=== PATIENT | male | born 2000 | race Caucasian/White ===

== ENCOUNTER 2025-04-24 11:35 | Outpatient (AMB) | payer OTHER, SELFPAY ==
--- NOTE | 2025-04-24 11:37 | A.OFFPC_ITS ---
Vital Signs 04/24/25 11:45 Height 6 ft 4.5 in Weight 181 lb 4 oz BMI 21.8 BP 121/75 Blood Pressure Location Rt brachial Position Sitting Respiration 18 Pulse 69 Pulse Source Pulse Oximeter Temp 97.4 F Temp Source Oral Pulse Oximetry (%) 97 Oxygen Delivery Method Room Air Intake Visit Reasons: ankle pain/establish patient Intake Note: Patient present to establish care. 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: No Accompanied by: Self / Same As Patient Allergies No Known Allergies Allergy (Verified 04/24/25 11:41) Medication List - Last Reconciled 04/24/25 by Errol Barth MD miconazole nitrate 2% (Antifungal (miconazole)) 1 appl topical BID Tobacco use date assessed: 04/24/25 Dental Screening Dental Screen Date: 04/24/25 Did you have a dental visit in the last 12 months?: No Did you have a dental problem in the last 6 months where you did not have access to dental care?: No Was dental information given to patient?: No HPI HPI Comments History of Present Illness Details History of Present Illness The patient is a 24 year old male presenting with an acute right ankle injury, recurrent angular cheilitis, persistent genital redness (balanitis), and hair loss. Right Ankle Sprain: The patient sustained an injury to his right ankle while playing volleyball three days ago when he landed on another player's foot, causing his ankle to roll. He reports sharp, stabbing pain localized to the medial aspect of the ankle. Initially, the pain was a 7-8 out of 10, and he was unable to bear any weight; it has since improved to a 6 out of 10, and he can now hop and walk with a limp. He notes puffiness on the side but no pain in that area. He has been managing it with rest, ice, compression, and elevation (WAN). He has a history of a severe left ankle sprain in September, for which he received physical therapy and still feels is at 85% recovery, though it is not painful. An x-ray of the left ankle at that time was negative for any acute fracture. Angular Cheilitis and Balanitis: The patient reports recurrent issues with cuts in the corners of his mouth (angular cheilitis) and persistent redness around his foreskin (balanitis) for at least a year. He was previously prescribed a treatment, believed to be clotrimazole, for a suspected yeast infection in both areas. He used the cream for about three weeks with no significant improvement for the angular cheilitis, which seemed to heal naturally on its own. The balanitis has become more persistent over the past year, described as a constant, agitated redness, whereas previously it would resolve. He has a girlfriend who also experiences recurrent yeast infections, and he is concerned they may be passing it back and forth. Hair Loss: The patient reports recent, rapid hair loss and is unsure if the cause is stress, genetics, or a medical condition. Constipation: The patient reports experiencing moments of constipation. He also had a recent episode of rectal discomfort and pain upon sitting, which he believes was related to internal hemorrhoids from straining during a period of constipation. The rectal symptoms have since improved over the last two weeks. Supraventricular Tachycardia (SVT): The patient has a history of SVT and underwent an ablation procedure via the groin approximately three years ago. He has not had any episodes since the surgery. Surgical History: - Supraventricular tachycardia (SVT) abl ation approximately three years ago. Medications: - Clotrimazole cream: Prescribed previou [facility] for angular cheilitis and balanitis. Social History: - Education: Recently completed a Master 's degree in [employer]. - Substance Use: Smokes marijuana since the COVID-19 pandemic began (4-5 years); denies other drug use. - Sexual History: He is sexually active with one partner (girlfriend). 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 Family History: - The patient mentions a family history of male pattern baldness may be relevant to his hair loss. - A family history of diabetes is noted as a risk factor. Diagnostic Results: - Labs (from ~1 month prior): reported n ormal iron levels; no STDs. - Imaging (from September): x-ray of the left ankle was negative for acute fracture. Past Medical History - Supraventricular tachycardia (SVT): [facility] successful cardiac ablation three years ago with no recurrence of episodes. - Prior Hospitalizations: He denies any long-term hospitalizations. - Left ankle sprain: sustained in September, t reated with physical therapy. Health Maintenance - Discussed managing constipation by inc reasing water and fiber intake, and using srpl-arj-mzdkcna stool softeners like Miralax or docusate as needed to prevent long-term complications like severe hemorrhoids or diverticulosis. - Lab work ordered to establish a merged with [facility] baseline and investigate potential underlying causes for recurrent infections and hair loss. - STD testing was negative about a month ago. [facility] Medical History (Updated 04/24/25 @ 12:31 by Errol Barth MD) SVT (supraventricular tachycardia) Constipation Hair loss Angular cheilitis Right ankle sprain Balanitis Supraventricular arrhythmia Family History (Updated 04/24/25 @ 11:44 by Damion Hernandez CMA) Maternal Grandfather Substance use disorder Mother Mental health disorder Social History (Updated 04/24/25 @ 11:44 by Damion Hernandez CMA) Housing: House Alcohol intake: current Comment: Rarely Patient Tobacco Use Status: Never used Tobacco e-Cigarette/Vaping Use: Never Used Second Hand Smoke Exposure: No Substance Use Type: Marijuana service: No Current occupational status: employed 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 1. Little interest or pleasure in doing things: not at all 2. Feeling down, depressed, or hopeless: several days 3. Trouble falling or staying asleep, or sleeping too much: several days 4. Feeling tired or having little energy: several days 5. Poor appetite or overeating: several days 6. Feeling bad about yourself - or that you are a failure or have let yourself or your family down: several days 7. Trouble concentrating on things, such as reading the newspaper or watching television: not at all 8. Moving or speaking so slowly that other people could have noticed. Or the opposite - being so fidgety or restless that you have been moving around a lot more than usual: not at all 9. Thoughts that you would be better off or of hurting yourself in some way: several days Total score: 6 Depression Screening Interpretation: Negative Depression Screening Done: Yes 36400 - PHQ-9 Billing: Yes Source: Developed by Drs. Tejinder Bolanos, An B.Avni Alvarez and colleagues, with an educational km from [employer]. Thrive Questionnaire Date Thrive assessed: 04/24/25 I am a: Patient What is your living situation today?: I have a steady place to live Within the past 12 months, did the food you bought not last and you didn't have the money to get more?: Never true Within the past 12 months, did you worry whether your food would run out before you got money to buy more?: Never true Do you have trouble paying for medicines?: No Do you have trouble getting transportation to medical appointments?: No Do you have trouble paying your heating and electricity bill?: No Do you have trouble taking care of your child, family member or friend?: No Are you currently unemployed and looking for a job?: No Are you interested in more education?: No Please select the resources that you would like help with: None Currently or been in a relationship where the following occur: No concerns reported THRIVE Score: 0 AUDIT C Alcohol Use Questionnaire (AUDIT-C) 1. How often do you have a drink containing alcohol?: Monthly or less 2. How many drinks containing alcohol do you have on a typical day when you are drinking?: 3 or 4 3. How often do you have six or more drinks on one occasion?: Less than monthly Total Score: 3 RAPHAEL-7 AMB Questionnaire RAPHAEL-7 Date RAPHAEL - 7 assessed: 04/24/25 Feeling nervous, anxious, or on edge: 0 = Not at all Not being able to stop or control worryin = Several days Worrying too much about different things: 1 = Several days Trouble relaxin = Not at all Being so restless that it is hard to sit still: 0 = Not at all Becoming easily annoyed or irritable: 1 = Several days Feeling afraid as if something awful might happen: 0 = Not at all Total RAPHAEL-7 score (0-4 normal; 5-9 mild; 10-14 moderate; 15-21 severe): 3 Source: Developed by Drs. Tejinder Bolanos, Avni Martinez and colleagues, with an educational km from [employer]. RAPHAEL-7 Assessment Billing RAPHAEL-7 Assessment Tool: RAPHAEL-7 Assessment 79824 Review of Systems Narrative Review of Systems - Musculoskeletal: Reports sharp, stabbing pain (6/10) and puffiness in the right ankle with limited weight-bearing ability. Denies significant pain in the previously sprained left ankle. - Skin/Integumentary: Reports cuts in the corners of his mouth and a recent abrasion on his right knee. Reports rapidly thinning hair. Reports persistent redness around the foreskin. - Genitourinary: Reports persistent redness around the foreskin, which feels sensitive. Denies being circumcised. - Cardiovascular: Reports history of SVT, status post-ablation, with no episodes since. - Gastrointestinal: Reports intermittent constipation and a history of what he believes were hemorrhoids causing discomfort when sitting, which has since resolved. Denies current rectal pain. - Neurological: Reports good sleep. 10-point ROS reviewed and negative except as noted in HPI Physical exam (Primary Care) Vital Signs: Last Vital Signs Temp 97.4 F 04/24/25 11:45 Pulse 69 04/24/25 11:45 Resp 18 04/24/25 11:45 BP 121/75 04/24/25 11:45 Pulse Ox 97 04/24/25 11:45 Oxygen Delivery Method Room Air 04/24/25 11:45 BMI result Body Mass Index 21.8 Tobacco/Smoking Status: Tobacco use Status Tobacco use date assessed 04/24/25 04/24/25 11:47 Patient Tobacco Use Status Never used Tobacco 04/24/25 11:47 e-Cigarette/Vaping Use Never Used 04/24/25 11:47 PHQ-9: PHQ-9 Score PHQ-9: Total score 6 04/24/25 11:49 Depression Screening Interpretation: Negative Thrive Assessment: Date of Thrive Assessment Date Thrive assessed 04/24/25 04/24/25 11:40 Currently or been in a relationship where the following occur: No concerns reported Narrative Physical Exam General: Well-appearing, in no acute distress. Vital signs: Within normal limits. HEENT: Normocephalic, atraumatic. PERRLA, EOMI. Conjunctiva clear, sclera anicteric. Oropharynx clear, mucous membranes moist. TMs intact bilaterally. Notable for angular cheilitis at the corners of the mouth. Neck: Supple, no lymphadenopathy, no thyromegaly, no JVD or carotid bruits. Cardiovascular: RRR, normal S1/S2, no murmurs, rubs, or gallops. Peripheral pulses 2+ and symmetric. No edema. Respiratory: Lungs clear to auscultation bilaterally, no wheezes, rales, or rhonchi. Normal effort. Abdomen: Soft, non-tender, non-distended. Normoactive bowel sounds. No hepatosplenomegaly, no masses. MSK: Full range of motion, no joint swelling or deformity. Normal gait. Right ankle with tenderness and swelling, patient reports sharp pain, rated 6/10, improved from initial 7-8/10. Skin: Warm, dry, intact. No rashes, lesions, or pallor. Notable for persistent redness around the foreskin. cracked mild crusting corner of mouth Neuro: Alert and oriented x3. Cranial nerves II-XII intact. Strength 5/5 throughout. Sensation intact. Reflexes 2+ symmetric. Normal coordination and gait. Psych: Appropriate mood and affect. Normal judgment and insight. Coding Level of Care Code New Pt Level 4 (44848) Add On Problem Visit Only Diagnoses Right ankle sprain S93.401A Angular cheilitis K13.0 Balanitis N48.1 Hair loss L65.9 Constipation K59.00 SVT (supraventricular tachycardia) I47.10 Additional Codes RAPHAEL-7 Assessment Billing - RAPHAEL-7 Assessment Tool: RAPHAEL-7 Assessment 64460 ([id number]) PHQ-9 - 78653 - PHQ-9 Billing: Yes ([id number]) Assessment & Plan Assessment & Plan (1) Right ankle sprain: Code(s): S93.401A - Sprain of unspecified ligament of right ankle, initial encounter Category: Medical (2) Angular cheilitis: Code(s): K13.0 - Diseases of lips Category: Medical (3) Balanitis: Code(s): N48.1 - Balanitis Category: Medical (4) Hair loss: Code(s): L65.9 - Nonscarring hair loss, unspecified Category: Medical (5) Constipation: Code(s): K59.00 - Constipation, unspecified Category: Medical (6) SVT (supraventricular tachycardia): Code(s): I47.10 - Supraventricular tachycardia, unspecified Category: Medical Plan Consent Patient was informed and verbally consented to the use of an ambient scribe for clinic note documentation during this visit. Plan 1. Right Ankle Sprain - Based on the [place] Ankle Rules and physical exam, an X-ray is not indicated at this time as a fracture is unlikely. - Continue conservative management with RICE (Rest, Ice, Compression, Elevation). - The patient is advised to wear his ankle brace for support. - Monitor for improvement. 2. Angular Cheilitis, Balanitis, And Hair Loss - The differential diagnosis for these recurrent issues includes fungal infection, bacterial infection, vitamin deficiencies (B2, B12, folate, zinc), and elevated blood sugar. - A comprehensive blood panel will be ordered to investigate the underlying cause, including CBC, TSH, lipid panel, hemoglobin A1c, and levels of vitamins B2 (riboflavin), B12, folate (B9), zinc, and iron. - The patient is advised to stop using clotrimazole. - A new medication with both antifungal and antibacterial properties will be prescribed for the balanitis. - The possibility of cross-infection with his partner was discussed. - Patient to follow up in two weeks to review lab results and adjust the treatment plan accordingly. 3. Constipation And Hemorrhoids - The patient is advised to increase his water and fiber intake, including more green vegetables. - He is advised to use nzor-uil-ducakab stool softeners like MiraLAX or docusate when constipated to prevent straining and long-term complications like diverticulosis. Discussion Notes I discussed with the patient that his right ankle injury appears to be a sprain that is healing well and does not require an x-ray at this time, based on the [place] [facility]le Rules. I recommended he continue with RICE therapy and use his ankle brace for support. I explained that the recurrent nature of his angular cheilitis, balanitis, and his recent hair loss warrants a thorough investigation to find the root cause, rather than just treating the symptoms. We reviewed the potential causes including fungal or bacterial infections, vitamin deficiencies (B2, B12, folate, zinc), or elevated blood sugar, noting his family history of diabetes as a risk factor. I ordered a comprehensive panel of blood tests to assess for these possibilities. I will prescribe a different topical medication with both antifungal and antibacterial properties for his balanitis and advised him to stop the clotrimazole. We also discussed that he and his girlfriend might be passing a yeast infection back and forth. Regarding his constipation, I provided guidance on increasing water and fiber intake and using over-the- counter stool softeners as needed to prevent recurrence and long-term complications. The patient can have his labs drawn here without fasting. We will follow up in two weeks to review the results, but I will contact him sooner if anything critical is found. Patient Instructions - For your ankle sprain, continue to use the RICE method: Rest, Ice, Compression, and Elevation. Wear your ankle brace for added support. - Stop using the clotrimazole cream. - Use the new cream that will be prescribed for the redness on your penis as directed. - Please go to the lab to have the blood tests done. You do not need to fast (go without eating) for these tests. - For constipation, increase the amount of water you drink and eat more foods with fiber, such as leafy green vegetables. - If you become constipated again, you can use an xxkx-zye-hhbkiwr stool softener like MiraLAX or docusate. - Schedule a follow-up appointment in two weeks to discuss your lab results. - I will contact you sooner if your lab results show anything that needs immediate attention. Medical Decision Making The patient is a 24-year-old male presenting with multiple concerns, primarily an acute right ankle injury, recurrent angular cheilitis, persistent balanitis, and hair loss. His right ankle injury is consistent with a ligamentous sprain; his ability to bear some weight and localized tenderness on the medial aspect, without exquisite tenderness over bony landmarks, makes a fracture unlikely per [place] [facility]le Rules, thus deferring the need for imaging. The management will be conservative with RICE and bracing. The constellation of recurrent angular cheilitis and balanitis, along with new hair loss, is concerning for a potential underlying systemic issue rather than separate dermatological problems. The diff erential is broad and includes nutritional deficiencies (B vitamins, zinc, iron), hyperglycemia (given his family history risk for diabetes), or persistent fungal/bacterial infections potentially exchanged with his partner. A comprehensive lab workup is the most logical next step to narrow down these possibilities and arrive at a root cause rather than continuing empirical treatment which has already failed. While awaiting results, I will prescribe a combination antifungal/antibacterial topical for his balanitis, as it offers broader coverage than clotrimazole alone and is more appropriate given the persistent nature of his symptoms. His constipation and hemorrhoid history are addressed with lifestyle and dietary counseling to prevent long-term GI issues. A two-week follow-up is scheduled to correlate lab findings with the clinical picture and establish a definitive treatment plan. Total Time Statement 30 min Total time spent caring for the patient today includes pre-visit chart review, documentation, review of laboratory and diagnostic imaging results, medication reconciliation, medically necessary evaluation, counseling on diagnoses, care coordination, ordering appropriate tests and medications, review of tests performed by other providers, reporting test results to the patient, and communication with other healthcare providers. Orders: Orders Vitamin B12 and Folate Today Z13.9 - Encounter for screening, unspecified Zinc Today Z13.9 - Encounter for screening, unspecified Hepatitis B Surface Antigen Today Z13.9 - Encounter for screening, unspecified Syphilis Screen Today Z13.9 - Encounter for screening, unspecified Comprehensive Met. Panel Today Z13.9 - Encounter for screening, unspecified Hepatitis C Antibody Today Z13.9 - Encounter for screening, unspecified TSH reflex Free T4 Today Z13.9 - Encounter for screening, unspecified CT NG by PCR Urine Today Z13.9 - Encounter for screening, unspecified UA CC w/rflx Micro + Cult Today Z13.9 - Encounter for screening, unspecified Lipid Panel Today Z13.9 - Encounter for screening, unspecified Hemoglobin A1c Today Z13.9 - Encounter for screening, unspecified Hepatitis B Surface Antibody Today Z13.9 - Encounter for screening, unspecified Ferritin Today D50.9 - Iron deficiency anemia, unspecified, Z13.9 - Encounter for screening, unspecified IRON PROFILE Today D50.9 - Iron deficiency anemia, unspecified, Z13.9 - Encounter for screening, unspecified Transferrin Today D50.9 - Iron deficiency anemia, unspecified, Z13.9 - Encount er for screening, unspecified Vitamin B2 (Riboflavin) Today Z13.9 - Encounter for screening, unspecified Complete Blood Count Auto Diff Today Z13.9 - Encounter for screening, unspecified HIV Ab/Ag Today Z13.9 - Encounter for screening, unspecified Magnesium Today Z13.9 - Encounter for screening, unspecified Vitamin D 25-OH (D2 and D3) Today Z13.9 - Encounter for screening, unspecified Medications: New miconazole nitrate 2% (Antifungal (miconazole)) 1 appl topical BID 28 grams 0RF N48.1 - Balanitis
[2025-04-24 11:45] VITALS: BP 121/75; PULSE 69; RESP 18; TEMP 36.3; O2SAT 97; BMI 21.8
== END 2025-04-24 12:16 | disposition home or self-care (01) ==
LOC: HO.HMCFMS 11:36
PROVIDERS: PCP Student in an Organized Health Care Education/Training Program; Visit Provider Student in an Organized Health Care Education/Training Program
DX: S93.401A Sprain of unspecified ligament of right ankle, initial encounter (principal); K13.0 Diseases of lips; N48.1 Balanitis; L65.9 Nonscarring hair loss, unspecified; K59.00 Constipation, unspecified; I47.10 Supraventricular tachycardia, unspecified

== ENCOUNTER 2025-04-24 11:35 | Outpatient (REF) | payer OTHER, SELFPAY ==
[2025-04-24 13:27] LABS: MANUAL DIFF FLAG NO
[2025-04-24 13:37] LABS: Appearance Urine Clear; Glucose Urine UA Negative (Negative); PH 5.5 (5.0-9.0); Specific Gravity - Urine >= 1.030 (1.005-1.025)
[2025-04-24 13:46] LABS: Hematocrit 43.0 % (42.0-52.0); Hemoglobin 14.8 g/dl (14.0-18.0); Imm Gran Abs Auto 0.00 X10*3/uL (0.00-0.03); Imm Gran Pct Auto 0.0 % (0.0-0.4); Lymphocytes Absolute Auto 2.0 X10*3/uL (1.2-4.9); Mean Corpuscular HGB Conc 34.4 g/dl (31.0-36.0); Mean Corpuscular Hemoglobin 30.0 pg (27.0-33.0); Mean Corpuscular Volume 87.2 fL (80.0-98.0); NRBC Abs Auto 0.000 X10*3/uL (0.0-0.012); NRBC Pct Auto 0.0 /100WBC (0.0-0.2); Platelet Count 236 X10*3/uL (160-400); Red Blood Count 4.93 X10*6/uL (4.60-5.80); White Blood Count 4.9 X10*3/uL (4.8-10.8)
[2025-04-24 15:12] LABS: CT PCR Urine NOT DETECTED (Not Detect.); NG PCR Urine NOT DETECTED (Not Detect.)
--- OUTSIDE RECORDS SUMMARY | 2025-04-24 17:52 | XMS_ITS | Encounter Summary ---
Author Organization [facility] Address [address] [place] [id number] Phone Care Team Providers Care Skilled Nursing Professional Name Role Phone Karolina Evangelista MD Unavailable [email or web address] Slime Clark MD Primary Care Provider + Encounter Details Date Type Department Care Team (Late st Contact Info) Description 03/24/2025 Transcribe Orders Virtual Department [address] [place] [address] Augie Andrews PA [address] [place] [phone] [email or web address] Abdominal pain, right upper quadrant (Primary Dx) Social History Tobacco Use Types Packs/Day Years Used Date Smoking Tobacco: Never Smokeless Tobacco: Never Education Answer Date Recorded Are you interested in more education? Not on katherine e 09/05/2022 Are you concerned about learning? Not on file 09/05/2022 No 09/05/2022 No 09/05/2022 Digital Access Answer Date Recorded No 10/06/2022 No 10/06/2022 Reliable internet access at home? Not on file 10/06/2022 Device with a working camera? Not on file Sex and Gender Information Value Date Recorded Sex Assigned at Male 05/16/2023 3:01 AM EST Legal Sex Male 8:46 PM EDT Gender Identity Male 05/16/2023 3:01 AM EST Sexual Orientation Straight 05/16/2023 3: 01 AM EST documented as of this encounter Plan of Treatment Scheduled Orders Name Type Priority Associated Diagnoses Orde r Schedule US Abdomen Limited Imaging Routine Abdominal pain, right upper quadrant Expected: 03/24/2025, Expires: 03/24/2026 documented as of this encounter Visit Diagnoses Diagnosis Abdominal pain, right upper quadrant- Primary documented in this encounter Care Teams Skilled Nursing Professional Relationship Specialty Start Date End Date Slime Clark MD [address] [place] [address] [email or web address] PCP - General Family Medicine 10/14/23 Karolina Evangelista MD [email or web address] Cardiology 10/09/22 documented as of this encounter Additional Source Comments The information contained in this document represents components of the legal health record. It is not the complete legal health record.[facility]
--- OUTSIDE RECORDS SUMMARY | 2025-04-24 17:52 | XMS_ITS | Clinical Summary ---
Author Organization [facility] Address [address] [place] [address] Phone Care Team Providers Care Supervisor Mail Carriers Name Role Phone Alejo Milian MD Primary Care Provider [phone] Peyman Blackwood MD Unavailable [phone] Alejo Milian MD Unavailable [phone] Peyman Blackwood MD Unavailable [phone] Medications aspirin 81 mg chewable tablet Dose: 81 mg, PO, daily, Entered: 12/06/21 11:33:00 EDT 12/06/2021 Active Social History Tobacco Use Types Packs/Day Years Used Date Smoking Tobacco: Never Assessed Sex and Gender Information Value Date Recorded Sex Assigned at Not on file Legal Sex Male 5:15 AM EDT Gender Identity Not on file Sexual Orientation Not on file Last Filed Vital Signs Vital Sign Reading Time Taken Comments Blood Pressure 118/80 12/06/2021 3:30 PM EDT Pulse 61 12/06/2021 3:30 PM EDT Temperature - - Respiratory Rate 18 12/06/2021 3:30 PM EDT Oxygen Saturation 100% 12/06/2021 3:30 PM EDT Inhaled Oxygen Concentration - - Weight 81.7 kg (180 lb 1.9 oz) 12/05/2021 1:26 P M EDT Height 192 cm (6' 3.59 ) 12/05/2021 1:26 PM EDT Body Mass Index 22.16 12/05/2021 1:26 PM EDT Plan of Treatment Not on file Care Teams Supervisor Mail Carriers Relationship Specialty Start Date End Date Alejo Milian MD [address] [address] PCP - General 09/19/21 Alejo Milian MD [address] [address] PCP - Clinical PCP 09/19/21 Peyman Blackwood MD [address] [place] [address] Associate Attending Cardiology 10/31/21 Peyman Blackwood MD [address] [place] [address] Stator Tester 10/10/23
--- OUTSIDE RECORDS SUMMARY | 2025-04-24 17:52 | XMS_ITS | Encounter Summary ---
Author Organization [facility] Address [address] [place] [address] [place] [phone] Phone Care Team Providers Care Trial Mgr Name Role Phone Karolina Evangelista MD Unavailable [email or web address] Slime Clark MD Primary Care Provider + Encounter Details Date Type Department Care Team (Late st Contact Info) Description 03/23/2025 Lab Requisition [facility] Main [address] [place] [address] Augie Andrews PA [address] [place] [id number] [email or web address] Encounter for screening for infections with a predominantly sexual mode of transmission Social History Tobacco Use Types Packs/Day Years [...] as of this encounter Plan of Treatment Not on file documented as of this encounter Procedures Procedure Name Priority Date/Time Associated Diagnosis Comments CHLAMYDIA TRACHOMATIS AND NEISSERIA GONORRHOEAE NUCLEIC ACID DETECTION Today 03/23/2025 11:52 AM EST Encounter for screening for infections with a predominantly sexual mode of transmission documented in this encounter Results * Chlamydia trachomatis and Neisseria gonorrhoeae Nucleic Acid Amplification (03/23/2025 11:52 AM EST) N.gonorrhoeae, AMP Not Detected Not Detected 03/24/2025 11:45 AM EST [facility] Comment:This test is not rec ommended for evaluation of suspected sexual abuse or for other medico-legal indications This assay should not be used to determine therapeutic success as DNA may persist after appropriate antimicrobial therapy. This test has not been evaluated in patients younger than 14 years of age. Penile and Urethral specimen are not approved specimen types, interpret results with caution. C.trachomatis, AMP Not Detected Not Detected 03/24/2025 11:45 AM EST [facility] Comment:This test is not rec ommended for evaluation of suspected sexual abuse or for other medico-legal indications This assay should not be used to determine therapeutic success as DNA may persist after appropriate antimicrobial therapy. This test has not been evaluated in patients younger than 14 years of age. Penile and Urethral specimen are not approved specimen types, interpret results with caution. Urine (Urine, Voided) 03/23/2025 11:52 AM EST 03/23/2025 6:43 PM EST Narrative [facility] - 03/24/2025 11:[address]/NG Assay performance has not been evaluated on patients less than 14 years of age [facility] GENERAL ORDERABLES Final R esult [facility] [address] [place] [address] documented in this encounter Visit Diagnoses Diagnosis Encounter for screening for infections with a predominantly sexual mode of transmission documented in this encounter Care Teams Trial Mgr Relationship Specialty Start Date End Date Slime Clark MD [address] [place] [phone] [email or web address] PCP - General Family Medicine 10/14/23 Karolina Evangelista MD [email or web address] Pediatric Cardiology 10/09/22 documented as of this encounter Additional Source Comments The information contained in this document represents components of the legal health record. It is not the complete legal health record.[facility]
--- OUTSIDE RECORDS SUMMARY | 2025-04-24 17:52 | XMS_ITS | Encounter Summary ---
Author Organization [facility] Address [address] [place] [address] [place] [phone] Phone Care Team Providers Care Audio Experience Expert Name Role Phone Alejo Milian MD Primary Care Provider [phone] Karolina Evangelista MD Unavailable [email or web address] Slime Clark MD Primary Care Provider + Slime Clark MD Unavailable [phone] Encounter Details Date Type Department Care Team (Late st Contact Info) Description 01/26/2018 Ancillary Orders [facility], X-Ray - [place] [address] [place], [place] [phone] Alejo Milian MD [address] [facility], [address] [place] [address] [email or web address] Injury, wrist, left, initial encounter Social History Tobacco Use Types Packs/Day Years [...] on file documented as of this encounter Results * XR WRIST 3 OR MORE VIEWS (LEFT) (01/26/2018 10:56 AM EDT) Anatomical Region Laterality Modality Wrist Left Radiographic Essie ging 01/26/2018 11:3 4 AM EDT Impressions 01/26/2018 11:35 AM EDT No fracture seen. POS - [id number] Narrative 01/26/2018 11:35 AM EDT Left wrist 5 views. No prior. No fracture or malalignment is detected. No bony lesion is seen. Procedure Note Eileen Hutchinson MD - 01/26/2018 Left wrist 5 views. No prior. No fracture or malalignment is detected. Nobony lesion is seen. IMPRESSION: No fracture seen. POS - [id number] Alejo Milian MD IMG XR UPPER EXTREMITY Final Result documented in this encounter Visit Diagnoses Diagnosis Injury, wrist, left, initial encounter Injury, wrist, left, initial encounter documented in this encounter Care Teams Audio Experience Expert Relationship Specialty Start Date End Date Alejo Milian MD [address] [place] [phone] [email or web address] PCP - General Pediatrics 01/26/18 10/13/23 Slime Clark MD [address] [place] [phone] PCP - General Family Medicine 10/14/23 Karolina Evangelitsa MD [address] [place] [phone] [email or web address] Cardiology 10/09/22 Slime Clark MD [address] [place] [phone] [email or web address] Insurance Assigned Provider 12/19/23 02/14/24 documented as of this encounter Additional Source Comments The information contained in this document represents components of the legal health record. It is not the complete legal health record.[facility]
--- OUTSIDE RECORDS SUMMARY | 2025-04-24 17:52 | XMS_ITS | Encounter Summary ---
Author Organization [facility] Address [address] [place] [phone] Phone Care Team Providers Care Desktop Architect Name Role Phone Karolina Evangelista MD Unavailable [email or web address] Slime Clark MD Primary Care Provider + Encounter Details Date Type Department Care Team (Late st Contact Info) Description 03/23/2025 Orders Only [facility] Clark [address] [place] [phone] Augie Andrews PA [address] [place] [address] [email or web address] Well adult exam; Screen for STD (sexually transmitted disease); Pain, abdominal, RUQ; Dysuria; Unspecified skin changes; Diseases of lips Social History Tobacco Use Types Packs/Day Years Used Date Smoking Tobacco: Never Smokeless Tobacco: Never Education Answer Date Recorded Are you interested in more education? Not on aktherine e 09/05/2022 Are you concerned about learning? [...] documented as of this encounter Results * Comprehensive Metabolic Panel (CMP) (03/23/2025 2:22 PM EST) Sodium 140 136 - 145 mmol/L 03/23/2025 7:35 PM [facility] Potassium 4.2 3.4 - 5.1 mmol/L 03/23/2025 7:35 PM [facility] Chloride 104 98 - 107 mmol/L 03/23/2025 7:35 PM [facility] CO2 25 20 - 31 mmol/L 03/23/2025 7:35 PM [facility] Anion Gap 11 3 - 17 mmol/L 03/23/2025 7:35 PM [facility] BUN 16 6 - 23 mg/dL 03/23/2025 7:35 PM [facility] Creatinine 1.10 0.60 - 1.30 mg/dL 03/23/2025 7:35 PM [facility] eGFR 96 >59 mL/min/1.7 3m2 03/23/2025 7:35 PM [facility] Comment:Estimated glomerular filtration rate calculated using the CKD-EPI refit equation. Glucose 97 70 - 99 mg/dL 03/23/2025 7:35 PM [facility] Calcium 9.5 8.5 - 10.5 mg/dL 03/23/2025 7:35 PM [facility] AST 26 <40 U/L 03/23/2025 7:35 PM [facility] ALT 13 <50 U/L 03/23/2025 7:35 PM [facility] Alkaline Phosphatase 64 40 - 130 U/L 03/23/2025 7:35 PM [facility] Bilirubin, Total 0.7 0.0 - 1.2 mg/dL 03/23/2025 7:35 PM [facility] Total Protein 7.2 6.4 - 8.3 g/dL 03/23/2025 7:35 PM [facility] Albumin 4.5 3.5 - 5.2 g/dL 03/23/2025 7:35 PM [facility] Globulin 2.7 1.9 - 4.1 g/dL 03/23/2025 7:35 PM EST [facility] Blood (Blood) Venipuncture / Unknown 03/23/2025 2:22 PM EST 03/23/2025 2:22 PM EST Augie [facility] BLOOD BKR ORDERABLES Final Result Performing Organization Address [facility]/ZIP Co de Phone Number [address] [address] * C-Reactive Protein (CRP) (03/23/2025 2:22 PM EST) C Reactive Protein <3.0 <10.0 mg/L 03/23/2025 7:35 PM [facility] Comment:NOTE: This reference range is for the evaluation of inflammation. Order CRP, High Sensitivity for cardiac risk status evaluation. Blood (Blood) Venipuncture / Unknown 03/23/2025 2:22 PM EST 03/23/2025 2:22 PM EST [facility] BLOOD BKR ORDERABLES Final Result Performing Organization Address [facility] Co de Phone Number [address] [address] * Lipase (03/23/2025 2:22 PM EST) Lipase 19 13 - 60 U/L 03/23/2025 7:35 PM [facility] Blood (Blood) Venipuncture / Unknown 03/23/2025 2:22 PM EST 03/23/2025 2:22 PM EST [facility] BLOOD BKR ORDERABLES Final Result Performing Organization Address [facility] Co de Phone Number [address] [address] documented in this encounter Visit Diagnoses Diagnosis Well adult exam Routine general medical examination at a health care facility Screen for STD (sexually transmitted disease) Screening examination for venereal disease Pain, abdominal, RUQ Dysuria Unspecified skin changes Diseases of lips documented in this encounter Care Teams Desktop Architect Relationship Specialty Start Date End Date Slime Clark MD [address] [place] [phone] [email or web address] PCP - General Family Medicine 10/14/23 Karolina Evangelista MD [email or web address] Pediatric Cardiology 10/09/22 documented as of this encounter Additional Source Comments The information contained in this document represents components of the legal health record. It is not the complete legal health record.[facility]
--- OUTSIDE RECORDS SUMMARY | 2025-04-24 17:52 | XMS_ITS | Clinical Summary ---
Author Organization [facility] Address [address] [place] [phone] Phone Care Team Providers Care Plant Cytologist Name Role Phone Karolina Evangelista MD Unavailable [email or web address] Slime Clark MD Primary Care Provider + Allergies Active Allergy Reactions Criticality Noted Date Comments Bee Pollen 07/30/2017 Vtbed-Tglpz-Egjya Hornet Other (See Comments) 06/16/2023 Positive skin test Medications EPINEPHrine 0.3 mg/0.3 mL auto-injector epinephrine 0.3 mg/0.3 mL injection, auto-injector INJECT 0.3 ML (0.3 MG TOTAL) INTO THE MUSCLE ONCE IF NEEDED FOR ANAPHYLAXIS FOR UP TO 1 DOSE. 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 Aortic valve regurgitation 09/18/202110/09 Bicuspid aortic valve 09/18/2021 10/09/2022 Encounters Date Type Department Care Team Description 03/24/2025 Transcribe Orders Virtual Department [address] [place] [address] Augie Andrews PA Abdominal pain, right upper quadrant (Primary Dx) 03/23/2025 Lab Requisition [facility] Lab Main [address] [place] [address] Augie Andrews PA Dysuria 03/23/2025 Lab Requisition [facility] Lab Main [address] [place] [address] Augie Andrews PA Encounter for screening for infections with a predominantly sexual mode of transmission 03/23/2025 Orders Only [facility] Phleb Clark [address] [place] [phone] Augie Andrews PA Well adult exam; Screen for STD (sexually transmitted disease); Pain, abdominal, RUQ; Dysuria; Unspecified skin changes; Diseases of lips from Last 3 Months Family History Medical History Relation Comments Hyperlipidemia Maternal Grandfather Hyperlipidemia Maternal Grandmother Hyperlipidemia Mother Sudden Paternal Grandfather unknown cau se, no autopsy done. Possibly complications of Crohn's disease. He also had a history of ETOH use disorder. Hyperlipidemia Sister Arrhythmia Neg Hx Cardiomyopathy Neg Hx Congenital heart disease Neg Hx Heart failure Neg Hx Hypertension Neg Hx Pacemaker Neg Hx Relation Status Comments Maternal Grandfather Maternal Grandmother Mother Paternal Grandfather Sister Social History Tobacco Use Types Packs/Day Years [...] Orientation Straight 05/16/2023 3: 01 AM EST Last Filed Vital Signs Vital Sign Reading Time Taken Comments Blood Pressure 119/71 10/14/2023 3:33 PM EDT Pulse 60 10/14/2023 3:33 PM EDT Temperature 36.8 C (98.2 F) 05/16/2023 3:00 AM EST Respiratory Rate 16 05/16/2023 9:46 AM EST Oxygen Saturation 98% 10/14/2023 3:33 PM EDT Inhaled Oxygen Concentration - - Weight 83.5 kg (184 lb) 10/14/2023 3:33 PM EDT Height 193 cm (6' 4 ) 10/14/2023 3:33 PM EDT Body Mass Index 22.4 10/14/2023 3:33 PM EDT Plan of Treatment Health Maintenance Due Date Last Done Comments DEPRESSION SCREENING 2012 SMOKING Hx and SMOKELESS TOBACCO SCREENING 2013 INFLUENZA VACCINE (#1) 2024 , 09/22/2022, 05/13/2022, Additional history exists COVID-19 VACCINE ( season) 2025 07/04/2024, 05/13/2022, 06/01/2021, Additional history exists Adult Td,Tdap Booster 05/09/2031 05/09/2021, 012 HIB VACCINES Completed 09/24/2001, 12/09, 2000, Additional history exists MENINGOCOCCAL VACCINES (ACWY) Completed 12/30/2017, 12/10/2012 HEPATITIS A VACCINES Completed 07/08/2019, 12/23/19 19 HPV VACCINES Completed 07/08/2019, 12/09, 12/15/2016 HEPATITIS C SCREENING Completed 05/13/2022 HIV ONE-TIME SCREENING (18-65 YEARS) Completed 05/13/2022 MENINGOCOCCAL VACCINES (B) Aged Out N o longer eligible based on patient's age to complete this topic PNEUMOCOCCAL VACCINES (0-49 years) Aged Out No longer eligible based on patient's age to complete this topic Medical Devices Not on file Procedures Procedure Name Priority Date/Time Associated Diagnosis Comments CBC AND DIFFERENTIAL Routine 03/23/2025 2:22 PM EST Well adult exam Screen for STD (sexually transmitted disease) Pain, abdominal, RUQ Dysuria Unspecified skin changes Diseases of lips COMPREHENSIVE METABOLIC PANEL (CMP) Routine 03/23/2025 2:22 PM EST Well adult exam Screen for STD (sexually transmitted disease) Pain, abdominal, RUQ Dysuria Unspecified skin changes Diseases of lips CBC AND DIFFERENTIAL Routine 03/23/2025 2:22 PM EST Well adult exam Screen for STD (sexually transmitted disease) Pain, abdominal, RUQ Dysuria Unspecified skin changes Diseases of lips C-REACTIVE PROTEIN (CRP) Routine 03/23/2025 2:22 PM EST Well adult exam Screen for STD (sexually transmitted disease) Pain, abdominal, RUQ Dysuria Unspecified skin changes Diseases of lips LIPASE Routine 03/23/2025 2:22 PM EST Well adult exam Screen for STD (sexually transmitted disease) Pain, abdominal, RUQ Dysuria Unspecified skin changes Diseases of lips URINE CULTURE Today 03/23/2025 12:28 PM EST Dysuria CHLAMYDIA TRACHOMATIS AND NEISSERIA GONORRHOEAE NUCLEIC ACID DETECTION Today 03/23/2025 11:52 AM EST Encounter for screening for infections with a predominantly sexual mode of transmission HEPATITIS C ANTIBODY, QUALITATIVE Routine 05/13/2022 2:54 PM EST Encounter for screening for infections with a predominantly sexual mode of transmission from Last 3 Months or Most Recently Relevant to Health Maintenance Results * Comprehensive Metabolic Panel (CMP) (03/23/2025 2:22 PM EST) Sodium 140 136 - 145 mmol/L 03/23/2025 7:35 PM [facility] Potassium 4.2 3.4 - 5.1 mmol/L 03/23/2025 7:35 PM [facility] Chloride 104 98 - 107 mmol/L 03/23/2025 7:35 PM [facility] CO2 25 20 - 31 mmol/L 03/23/2025 7:35 PM [facility] Anion Gap 11 3 - 17 mmol/L 03/23/2025 7:35 PM [facility] BUN 16 6 - 23 mg/dL 03/23/2025 7:35 PM [facility] Creatinine 1.10 0.60 - 1.30 mg/dL 03/23/2025 7:35 PM [facility] eGFR 96 >59 mL/min/1.7 3m2 03/23/2025 7:35 PM [facility] Comment:Estimated glomerular filtration rate calculated using the CKD-EPI refit equation. Glucose 97 70 - 99 mg/dL 03/23/2025 7:35 PM [facility] Calcium 9.5 8.5 - 10.5 mg/dL 03/23/2025 7:35 PM [facility] AST 26 <40 U/L 03/23/2025 7:35 PM [facility] ALT 13 <50 U/L 03/23/2025 7:35 PM [facility] Alkaline Phosphatase 64 40 - 130 U/L 03/23/2025 7:35 PM [facility] Bilirubin, Total 0.7 0.0 - 1.2 mg/dL 03/23/2025 7:35 PM [facility] Total Protein 7.2 6.4 - 8.3 g/dL 03/23/2025 7:35 PM [facility] Albumin 4.5 3.5 - 5.2 g/dL 03/23/2025 7:35 PM [facility] Globulin 2.7 1.9 - 4.1 g/dL 03/23/2025 7:35 PM [facility] Blood (Blood) Venipuncture / Unknown 03/23/2025 2:22 PM EST 03/23/2025 2:22 PM EST us Augie SERRA LAB BLOOD BKR ORDERABLES Final Result [facility] [address] [place], [place] [id number] * CBC and Differential (03/23/2025 2:22 PM EST) WBC 4.64 4.00 - 11.00 K/uL 03/23/2025 6:45 PM [facility] RBC 4.91 4.50 - 5.90 M/uL 03/23/2025 6:45 PM [facility] Hemoglobin 15.0 13.5 - 17.5 g/dL 03/23/2025 6:45 PM [facility] Hematocrit 43.4 41.0 - 53.0 % 03/23/2025 6:45 PM [facility] MCV 88.4 80.0 - 100.0 fL 03/23/2025 6:45 PM [facility] MCH 30.5 27.0 - 31.0 pg 03/23/2025 6:45 PM [facility] MCHC 34.6 32.0 - 36.0 g/dL 03/23/2025 6:45 PM [facility] MPV 10.3 8.4 - 12.0 fL 03/23/2025 6:45 PM [facility] RDW-CV 12.3 11.5 - 14.5 % 03/23/2025 6:45 PM [facility] PLT 237 150 - 450 K/uL 03/23/2025 6:45 PM [facility] Neutrophils 42.6 % 03/23/2025 6:45 PM [facility] Lymphocytes 45.5 % 03/23/2025 6:45 PM [facility] Monocytes 9.1 % 03/23/2025 6:45 PM [facility] Eosinophils 1.7 % 03/23/2025 6:45 PM [facility] Basophils 0.9 % 03/23/2025 6:45 PM [facility] Imm Grans 0.2 % 03/23/2025 6:45 PM [facility] NRBC 0.0 <=0.0 /100 WBCs 03/23/2025 6:45 PM [facility] Absolute Neutrophils 1.98 1.92 - 7.60 K/uL 03/23/2025 6:45 PM [facility] Absolute Lymphocytes 2.11 0.72 - 4.10 K/uL 03/23/2025 6:45 PM [facility] Absolute Monocytes 0.42 0.16 - 1.10 K/uL 03/23/2025 6:45 PM [facility] Absolute Eosinophils 0.08 0.00 - 0.50 K/uL 03/23/2025 6:45 PM [facility] Absolute Basophils 0.04 0.00 - 0.15 K/uL 03/23/2025 6:45 PM [facility] Absolute Imm Grans 0.01 0.00 - 0.09 K/uL 03/23/2025 6:45 PM [facility] Absolute NRBC 0.00 <=0.00 K cells/uL 03/23/2025 6:45 PM [facility] Absolute Neutrophils 1.98 1.92 - 7.60 K/uL 03/23/2025 6:45 PM [facility] Comment:Automated cell count . Manual ANC may differ if performed. Diff Type Auto 03/23/2025 6:45 PM [facility] Blood (Blood) Venipuncture / Unknown 03/23/2025 2:22 PM EST 03/23/2025 2:22 PM EST us Augie SERRA LAB BLOOD BKR ORDERABLES Final Result Performing Organization Address [facility] Co de Phone Number [address] [address] * C-Reactive Protein (CRP) (03/23/2025 2:22 PM EST) C Reactive Protein <3.0 <10.0 mg/L 03/23/2025 7:35 PM [facility] Comment:NOTE: This reference range is for the evaluation of inflammation. Order CRP, High Sensitivity for cardiac risk status evaluation. Blood (Blood) Venipuncture / Unknown 03/23/2025 2:22 PM EST 03/23/2025 2:22 PM EST us Augie SERRA LAB BLOOD BKR ORDERABLES Final Result Performing Organization Address [facility] Co de Phone Number [address] [address] * Lipase (03/23/2025 2:22 PM EST) Lipase 19 13 - 60 U/L 03/23/2025 7:35 PM [facility] Blood (Blood) Venipuncture / Unknown 03/23/2025 2:22 PM EST 03/23/2025 2:22 PM EST Augie SERRA LAB BLOOD BKR ORDERABLES Final Result [address] [address] * Urine Culture (03/23/2025 12:28 PM EST) Urine Culture/Test <10.000 CFU/ML 03/25/2025 8:06 AM EST [facility] Urine (Urine, Voided) 03/23/2025 12:28 PM EST 03/23/2025 7:00 PM EST Augie SERRA LAB MICROBIOLOGY CULTURE ORDER RAYA Final Result [address] [address] * Chlamydia trachomatis and Neisseria gonorrhoeae Nucleic Acid Amplification (03/23/2025 11:52 AM EST) N.gonorrhoeae, AMP Not Detected Not Detected 03/24/2025 11:45 AM [facility] Comment:This test is not rec ommended [...] Not Detected Not Detected 03/24/2025 11:45 AM [facility] Comment:This test is not rec ommended [...] 11:52 AM EST 03/23/2025 6:43 PM EST [facility] - 03/24/2025 11:[address]/NG Assay performance has not been evaluated on patients less than 14 years of age Augie SERRA LAB GENERAL ORDERABLES Final R esult [address] [address] * Hepatitis C antibody, qualitative (05/13/2022 2:54 PM EST) HCV NON-REACTIV E NON-REACTI VE [facility] 05/13/2022 2:54 PM EST 05/13/2022 3:04 PM EST us Piedad Grace MD LAB BLOOD BKR ORDERABLES Fin al Result Performing Organization Address [facility]/ZIP Co de Phone Number [address] [address] from Last 3 Months or Most Recently Relevant to Health Maintenance Insurance [employer] OF STATE PPO [employer] OUT OF STATE PPO Member Subscriber Plan / Payer (Ef fective 2024-Present) Name:Shivam Gonzalez Relation to Subscriber:Self Name:Shivam Gonzalez Payer ID:[id number] (NAIC) Type:PPO Address: [address] [place], [place] BLUE [employer]OSS OUT OF STATE PPO Member Subscriber Plan / Payer (Ef fective 2024-Present) Name:Shivam Gonzalez Relation to Subscriber:Self Name:Shivam Gonzalez Payer ID:[id number] (NAIC) Type:PPO Address: [address] [place], [place] BLUE [employer] OUT OF STATE PPO Member Subscriber Plan / Payer (Ef fective 2024-Present) Name:Shivam Gonzalez Relation to Subscriber:Self Name:Shivam Gonzalez Payer ID:[id number] (NAIC) Type:PPO Address: [facility] [id number] [place], [place] BLUE [employer]OSS OUT OF STATE PPO [employer] OUT OF STATE PPO Care Teams Plant Cytologist Relationship Specialty Start Date End Date Slime Clark MD [address] [place] [address] EBONY Medrano [email or web address] PCP - General Family Medicine 10/14/23 Karolina Evangelista MD [email or web address] Pediatric Cardiology 10/09/22 Additional Source Comments The information contained in this document represents components of the legal health record. It is not the complete legal health record.[facility]
--- OUTSIDE RECORDS SUMMARY | 2025-04-24 17:52 | XMS_ITS | Encounter Summary ---
Author Organization [facility] Address [address] [place] [phone] Phone Care Team Providers Care Customer Care Voice Consultant Name Role Phone Karolina Evangelista MD Unavailable [email or web address] Slime Clark MD Primary Care Provider + Encounter Details Date Type Department Care Team (Late st Contact Info) Description 03/23/2025 Lab Requisition [facility] Lab Main [address] [place] [address] Augie Andrews PA [address] [place] [phone] [email or web address] Dysuria Social History Tobacco Use Types Packs/Day Years [...] Procedure Name Priority Date/Time Associated Diagnosis Comments URINE CULTURE Today 03/23/2025 12:28 PM EST Dysuria documented in this encounter Results * Urine Culture (03/23/2025 12:28 PM EST) Urine Culture/Test <10.000 CFU/ML 03/25/2025 8:06 AM EST [facility] Urine (Urine, Voided) 03/23/2025 12:28 PM EST 03/23/2025 7:00 PM EST Augie SERRA LAB MICROBIOLOGY CULTURE ORDER RAYA Final Result [address] [address] documented in this encounter Visit Diagnoses Diagnosis Dysuria documented in this encounter Care Teams Customer Care Voice Consultant Relationship Specialty Start Date End Date Slime Clark MD [address] [place] [phone] [email or web address] PCP - General Family Medicine 10/14/23 Karolina Evangelista MD [email or web address] Pediatric Cardiology 10/09/22 documented as of this encounter Additional Source Comments The information contained in this document represents components of the legal health record. It is not the complete legal health record[facility]
[2025-04-24 18:44] LABS: Alanine Aminotransferase 16 U/L (0-40); Albumin Level 4.6 g/dL (3.5-5.0); Alkaline Phosphatase 62 U/L (39-117); Anion Gap 8 (12-20); Aspartate Amino Transferase 32 U/L (5-37); Blood Urea Nitrogen 13 mg/dL (9-16); Calcium 9.3 mg/dL (8.4-10.2); Carbon Dioxide 27 mmol/L (22-29); Chloride 108 mmol/L (96-108); Cholesterol 134 mg/dL (<200); Estimated Glomerular Filt Rate > 60; HDL Cholesterol 48 mg/dL (>40); Iron 68 mcg/dL (45-160); Magnesium 2.1 mg/dL (1.6-2.6); Percent Iron Saturation 30 % (15-50); Potassium 4.2 mmol/L (3.3-5.1); Sodium 139 mmol/L (135-145); Total Iron Binding Capacity 225 mcg/dL (228-428); Total Protein 7.4 g/dL (6.5-8.0); Triglycerides 62 mg/dL (<150); Unsaturated Iron Binding 157 ug/dL
[2025-04-24 18:51] LABS: Ferritin 131 ng/mL (20-250)
[2025-04-24 19:16] LABS: Folate 4.2 ng/mL (> or = 4.0); Vitamin B12 319 pg/mL (200-900)
[2025-04-25 04:21] LABS: Syphilis Screen Nonreactive (Nonreactive)
[2025-04-25 05:07] LABS: HBS Num1 0.06 mIU/mL (0-7.99); HBsAGNum1 0.59 S/CO (0.00-0.99); HIV Num 1 0.08 S/CO (0.00-0.99); Hepatitis B Surface Antigen Negative (Negative); ~HepC Num1 0.23 S/CO (0.00-0.79); ~Hepatitis B Surface Antibody NONREACTIVE (Nonreactive); ~Hepatitis C Antibody Nonreactive (Nonreactive)
[2025-04-25 06:08] LABS: Transferrin 204 mg/dL (188-341)
[2025-04-28 06:34] LABS: Vitamin D 25-OH, D2 <4 ng/mL; Vitamin D 25-OH, D3 20 ng/mL; Vitamin D 25-OH, Total 20 ng/mL (30-100)
== END 2025-04-24 11:36 | disposition home or self-care (01) ==
LOC: HO.HKASLDS 11:35
PROVIDERS: PCP Student in an Organized Health Care Education/Training Program; Visit Provider Student in an Organized Health Care Education/Training Program
DX: Z13.9 Encounter for screening, unspecified (principal); D50.9 Iron deficiency anemia, unspecified; S93.401A Sprain of unspecified ligament of right ankle, initial encounter; K13.0 Diseases of lips; N48.1 Balanitis; L65.9 Nonscarring hair loss, unspecified; K59.00 Constipation, unspecified; I47.10 Supraventricular tachycardia, unspecified
CPT/HCPCS: 80053; 80061; 81003; 82306; 82607; 82728; 82746; 83036; 83540; 83735; 84252; 84443; 84466; 84630; 85025; 86706; 86780; 86803; 87340; 87389; 87491; 87591; 96127